=== PATIENT | female | born 1990 | race Caucasian/White ===

== ENCOUNTER 2018-05-16 11:05 | Emergency (ER) | payer BC ==
--- NOTE | 2018-05-16 11:45 | RAD ---
CERVICAL SPINE 3 VIEWS: Date: 05/16/18 COMPARISON: None. HISTORY: Thrown from a horse. FINDINGS: There is mild disc space narrowing and anterior osteophyte formation at C2-3. There is straightening of the normal cervical lordosis. No prevertebral soft tissue swelling. Open-mouth odontoid view demo nstrates a normal appearing dens and C1-2 articulation. IMPRESSION: No acute findings. If symptoms persist, CT advised given history of trauma. POS: BOO
--- NOTE | 2018-05-16 11:47 | RAD ---
LEFT SHOULDER 3 VIEWS: Date: 05/16/18 HISTORY: 27-year-old female with history of left shoulder pain following being thrown from a horse. FINDINGS: Three views of the left shoulder demonstrate a small focus of ossification overlying the humerus/acro mial space measuring approximately 0.2 x 0.7 cm, having an appearance most consistent with that of a small focus of calcific peritendinosis. No evidence for an overt acute fracture or dislocation. IMPRESSION: No overt acute fracture or dislocation. 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 If the patient has persistent or worsening left shoulder pain which does no t resolve, a follow-up MRI is recommended. POS: LETICIA
--- NOTE | 2018-05-16 11:58 | RAD ---
5 VIEWS SKULL: Date: 05/16/18 COMPARISON: None. HISTORY: Trauma, pain. FINDINGS: The frontal sinuses, maxillary sinuses, ethmoid air cells, and sphenoid sinuses appear well aerated. There is no displaced calvarial fracture evident. IMPRESSION: No displaced calvarial fracture seen. If symptoms persist, follow-up head CT advised. POS: BOO
== END 2018-05-16 12:30 | disposition home or self-care (01) ==
LOC: MADERS 11:05
DX: S40.012A Contusion of left shoulder, initial encounter (principal); V80.010A Animal-rider injured by fall from or being thrown from horse in noncollision accident, initial encounter
CPT/HCPCS: 70260; 72040

== ENCOUNTER 2021-08-01 10:53 | Emergency (ER) | payer BC, OTHER ==
[2021-08-01 11:46] LABS: #Basophils 0.1 thou/uL (0.0-0.2); #Eosinphils 0.1 thou/uL (0.0-0.7); #Lymphocytes 1.8 thou/uL (1.20-3.40); #Monocytes 0.9 thou/uL (0.11-0.59); #Neutrophils 13.1 thou/uL (1.40-6.50); %Basophils 0.7 % (0.0-1.0); %Eosinophils 0.9 % (0.0-10.0); %Lymphocytes 11.4 % (21.0-51.0); %Monocytes 5.3 % (0.0-10.0); %Neutrophils 81.6 % (42.0-75.0); Mean Corpuscular HGB CONC 32.7 g/dL (32.0-36.0); Mean Corpuscular Volume 88.9 fL (78.0-98.0); Mean Platelet Volume 6.4 fL (7.4-10.4); Platelet Count 392 thou/uL (130-400); RBC Distribution Width 11.9 % (11.5-14.5); Red Blood Cell (RBC) Count 4.46 mill/uL (4.20-5.40)
[2021-08-01 12:02] LABS: ALT (SGPT) 33 U/L (8-55); AST (SGOT) 26 U/L (5-34); Alkaline Phosphatase 68 U/L (40-110); Anion Gap 13 mmol/L (10-20); BUN (Urea Nitrogen) 13 mg/dL (7.0-18.7); Bilirubin, Total 0.4 mg/dL (0.2-1.2); Calc. Creatinine Clearance 0 mL/min (70-130); Calcium 10.1 mg/dL (7.8-10.44); Carbon Dioxide 27 mmol/L (22-29); Chloride 103 mmol/L (98-107); Globulin 3.3 g/dL (2.4-3.5); Glucose 107 mg/dL (70-105); Potassium 3.7 mmol/L (3.5-5.1); Protein, Total 7.3 g/dL (6.0-8.3); Sodium 139 mmol/L (136-145)
== END 2021-08-01 12:55 | disposition home or self-care (01) ==
LOC: MADERS 10:53
DX: S06.0X1A Concussion with loss of consciousness of 30 minutes or less, initial encounter (principal); V80.010A Animal-rider injured by fall from or being thrown from horse in noncollision accident, initial encounter
CPT/HCPCS: 70450; 71045; 72125; 80053; 85025